=== PATIENT | male | born 1980 | race American Indian/Alaskan Native ===

== ENCOUNTER 2018-12-07 00:46 | Emergency (ER) | payer OTHER ==
[2018-12-07 01:52] LABS: Bilirubin,Urine NEG (Negative); Blood,Urine NEG (Negative); Color,Urine Yellow (Yellow); Mucus,Urine FEW /HPF; Protein,Urine <15 mg/dL mg/dL (Negative); Urobilinogen,Urine < 2.0 mg/dL (<2.0); WBC,Urine < 1.0 /HPF (0.0-6.0)
[2018-12-07 02:12] LABS: Basophils % (Auto) 0.1 % (0.0-1.8); Eosinophils % (Auto) 0.1 % (0.0-4.3); Hematocrit 42.2 % (35.5-45.6); Hemoglobin 14.2 gm/dl (11.8-15.2); Lymphocytes # (Auto) 0.7 K/mm3 (1.2-5.4); Lymphocytes % (Auto) 7.6 % (13.4-35.0); Mean Corpuscular HGB Conc 34 % (32-34); Mean Corpuscular Volume 89 fl (84-94); Monocytes # (Auto) 0.4 K/mm3 (0.0-0.8); Monocytes % (Auto) 4.5 % (0.0-7.3); Platelet Count 184 K/mm3 (140-440); Red Blood Count 4.72 M/mm3 (3.65-5.03); Red Cell Distribution Width 14.2 % (13.2-15.2)
[2018-12-07 02:31] LABS: Alanine Aminotransferase 14 units/L (7-56); Albumin 4.6 g/dL (3.9-5); BUN/Creatinine Ratio 23; Blood Urea Nitrogen 25 mg/dL (9-20); Calcium 9.4 mg/dL (8.4-10.2); Hemolysis Index 3
[2018-12-07] MEDS ORDERED: ZOFRAN IV ONE (03:56)
[2018-12-07] MEDS ORDERED: NACL 0.9% 1000 ML 1,000 ML IV ONE (03:56)
[2018-12-07] MEDS ORDERED: MORPHINE IV ONE (03:56)
--- NOTE | 2018-12-07 04:01 | Emergency Department Report ---
ED Abdominal Pain HPI - General Chief Complaint: Abdominal Pain Stated Complaint: STOMACH CRAMPING NV Time Seen by Provider: 12/07/18 03:49 Source: patient Mode of arrival: Ambulatory Limitations: No Limitations - History of Present Illness Initial Comments: Patient is 38 years old male with no significant past medical history. Patient presented to the ER complaining of nausea vomiting, diarrhea and abdominal pain, Crampy, no radiation. Patient stated that his symptoms started after he ate his dinner. Patient denied any fever or chills. MD Complaint: abdominal pain -: This evening Location: diffuse Radiation: none Migration to: no migration Severity: moderate Severity scale (0 -10): 8 Quality: cramping Consistency: intermittent Context: possible food poisoning - Related Data Allergies Allergy/AdvReac Type Severity Reaction Status Date / Time No Known Allergies Allergy Unverified 12/07/18 00:50 ED Review of Systems ROS: Stated complaint: STOMACH CRAMPING NV Other details as noted in HPI Comment: All other systems reviewed and negative Constitutional: denies: chills, fever Cardiovascular: denies: chest pain Gastrointestinal: abdominal pain, nausea, vomiting, diarrhea. denies: constipation, hematemesis, melena, hematochezia Genitourinary: denies: urgency, dysuria Musculoskeletal: denies: back pain Skin: denies: lesions Neurological: denies: headache, weakness, numbness, paresthesias, confusion ED Past Medical Hx - Past Medical History Previous Medical History?: No - Surgical History Past Surgical History?: Yes Additional Surgical History: Right Inguinal hernia repair - Social History Smoking Status: Never Smoker Substance Use Type: None ED Physical Exam - General Limitations: No Limitations General appearance: alert, in no apparent distress - Head Head exam: Present: atraumatic, normocephalic, normal inspection - Eye Eye exam: Present: normal appearance, PERRL - ENT ENT exam: Present: mucous membranes dry - Neck Neck exam: Present: normal inspection, full ROM. Absent: tenderness, meningismus, lymphadenopathy, thyromegaly - Respiratory Respiratory exam: Present: normal lung sounds bilaterally - Cardiovascular Cardiovascular Exam: Present: regular rate, normal rhythm, normal heart sounds - GI/Abdominal GI/Abdominal exam: Present: soft, normal bowel sounds, other (negative McBurney sign.). Absent: distended, tenderness, guarding, rebound, rigid, organomegaly, mass, bruit, pulsatile mass, hernia - Extremities Exam Extremities exam: Present: normal inspection, full ROM, normal capillary refill - Back Exam Back exam: Present: normal inspection, full ROM - Neurological Exam Neurological exam: Present: alert, oriented X3, CN II-XII intact, normal gait, reflexes normal - Psychiatric Psychiatric exam: Present: normal mood - Skin Skin exam: Present: warm, intact, normal color ED Course Vital Signs 12/07/18 12/07/18 12/07/18 00:51 02:30 02:40 Temperature 97.7 F 97.6 F Pulse Rate 62 62 Respiratory 20 13 13 Rate Blood Pressure 116/74 Blood Pressure 109/59 [Left] O2 Sat by Pulse 100 97 97 Oximetry 12/07/18 04:17 Temperature Pulse Rate Respiratory 16 Rate Blood Pressure Blood Pressure [Left] O2 Sat by Pulse Oximetry ED Medical Decision Making - Lab Data Result diagrams: 12/07/18 01:34 12/07/18 01:34 - Medical Decision Making Patient is 38 years old male with no significant past medical history. Patient presented to the ER complaining of nausea vomiting, diarrhea and abdominal pain, Crampy, no radiation. Patient stated that his symptoms started after he ate his dinner. Patient denied any fever or chills. Patient received morphine, Zofran and normal saline. Patient is stating that he is feeling much better. No clinical evidence of acute appendicitis or other acute abdominal pathology. Patient symptoms consistent with food poisoning. Patient is given Zofran and advised to follow-up with his primary care physician in the next 2-3 days and to return to the ER if symptoms are not improved. Critical care attestation.: If time is entered above; I have spent that time in minutes in the direct care of this critically ill patient, excluding procedure time. ED Disposition Clinical Impression: Abdominal pain, Gastroenteritis Disposition: DC-01 TO HOME OR SELFCARE Is pt being admited?: No Condition: Stable Instructions: Acute Abdominal Pain (ED), Food Poisoning (ED) Referrals: RITIKA CASTAÑEDA MD [Primary Care Provider] - 3-5 Days
--- NOTE | 2018-12-07 04:48 | XRay Report ---
Acute abdominal series, 3 views INDICATION: Abdominal pain FINDINGS: Bowel gas pattern is normal with no ileus or obstruction. No free air or significant air-fl uid levels. No renal or ureteral calculi. There is moderate amount of stool in colon. Accompanying ch est x-ray is unremarkable. No significant abnormality. Signer Name: Nicholas Barcenas MD Signed: 12/07/2018 4:44 AM Workstation Name: [id number]
[2018-12-07 05:04] VITALS: BP 120/75
== END 2018-12-07 05:28 | disposition home or self-care (01) ==
LOC: ED 00:46
DX: K52.9 Noninfective gastroenteritis and colitis, unspecified (principal); Z98.890 Other specified postprocedural states
CPT/HCPCS: 36415; 74022; 80053; 81001; 83690; 85025; 96361; 96374; 96375; 99284; J2270; J2405; J7030